=== PATIENT | male | born 1970 | race Caucasian/White ===

== ENCOUNTER → 2019-06-09 | Day surgery (SDC) | payer BC ==
[~2019-06-09] MED LIST: PROPOFOL 500 MG/50 ML EMU IV ONE
[2019-06-09 14:04] VITALS: RESP 16
[2019-06-09 14:23] VITALS: BP 113/72; PULSE 59; TEMP 96.4; O2SAT 99
== END | disposition home or self-care (01) ==
LOC: SURG 12:05
PROVIDERS: ATTEND Surgery
DX: Z12.11 Encounter for screening for malignant neoplasm of colon (principal)
CPT/HCPCS: J2001; J2704